=== PATIENT | female | born 1970 | race Asian ===

== ENCOUNTER 2017-09-11 14:36 | Outpatient (CLI) | payer BC, OTHER | END 2017-09-11 14:37 | disposition home or self-care (01) | LOC: LABHHL 14:36 | PROVIDERS: ATTEND Surgery | DX: N60.02 Solitary cyst of left breast (principal) | CPT/HCPCS: 88112; 88305 ==

== ENCOUNTER 2020-05-20 12:23 | Outpatient (CLI) | payer OTHER ==
--- NOTE | 2020-05-20 13:14 | Mammography Report ---
DIGITAL SCREENING MAMMOGRAM WITH CAD, 05/20/2020 CLINICAL INFORMATION / INDICATION: Routine screening mammography. TECHNIQUE: Digital bilateral 2D mammography was obtained in the craniocaudal and mediolateral obliqu e projections. This examination was interpreted with the benefit of Computer-Aided Detection analysis . COMPARISON: 05/19/2019, 03/11/2018 FINDINGS: Breast Density: The breasts are heterogeneously dense, which may obscure small masses. No dominant mass, suspicious calcifications, or architectural distortion in either breast. Left breast nodularity is unchanged. IMPRESSION: No mammographic evidence of malignancy. Follow up recommendation: Routine yearly BI-RADS Category 2: Benign. A "normal" or negative report should not discourage follow up or biopsy of a clinically significant f inding. A written summary of these findings will be mailed to the patient. The patient will be entered into a mammography reporting system which will generate a reminder letter for the patient's next appointmen t at the appropriate interval. [employer] recommends yearly mammograms starting at age 40 and continuing as l abilio as a woman is in good health. Breast MRI is recommended for women with an approximate 20-25% or greater lifetime risk of breast cancer, including women with a strong family history of breast or ova chilango cancer or who have been treated for Hodgkin's disease. Signer Name: Casey Agustin MD Signed: 05/20/2020 1:09 PM Workstation Name: [id number]
== END 2020-05-20 12:24 | disposition home or self-care (01) ==
LOC: SPVWC 12:23
PROVIDERS: ATTEND Surgery
DX: Z12.31 Encounter for screening mammogram for malignant neoplasm of breast (principal)
CPT/HCPCS: 77067